=== PATIENT | male | born 1970 ===

== ENCOUNTER → 2021-11-06 13:51 | Outpatient (CLI) | payer MEDICARE, SELFPAY ==
--- NOTE | ~2021-11-06 | MR_ITS ---
EXAMINATION: MR femur LT wo con DATE: 11/06/2021 14:53 INDICATION: Left femur pain TECHNIQUE: Magnetic resonance imaging (MRI) of the left thigh was performed without intravenous contr ast. Sequences included axial, sagittal and coronal T1-weighted FSE and fluid sensitive FSE STIR. COMPARISON: None. FINDINGS: Partial tear along the proximal myotendinous junction of the long head of the left biceps femoris wit h multiloculated T1 and T2 hyperintense fluid collection consistent with hematoma and surrounding mil d feathery muscular edema. The hematoma extends 15 cm craniocaudally with the largest component measu ring 4.0 x 3.5 cm in maximal transaxial dimensions. Remainder of the musculature in both thighs appea rs normal. Bone alignment is normal. Normal marrow signal throughout with no fracture or pathologic m arrow replacing process. Evaluation of the joint spaces and cartilage is limited by the large field-o f-view of imaging. There is a least moderate severity osteoarthritis at the medial compartment of the right knee. Small right knee joint effusion. No pleural effusions at the left knee or bilateral hips . Right pelvic kidney which could represent a transplant kidney. Correlate with clinical/surgical his tory. No pathologically enlarged pelvic or inguinal lymphadenopathy. IMPRESSION: 1. Moderate grade strain/partial tear along the proximal myotendinous junction of the long head of th e left biceps femoris muscle with associated extensive multiloculated hematoma. Reviewed, dictated and finalized at location B. IMPRESSION: 1. Moderate grade strain/partial tear along the proximal myotendinous junction of the long head of the left biceps femoris muscle with associated extensive mu ltiloculated hematoma.
== END ==
PROVIDERS: Visit Provider Orthopaedic Surgery
DX: S76.912A Strain of unspecified muscles, fascia and tendons at thigh level, left thigh, initial encounter (principal)
CPT/HCPCS: 73721